=== PATIENT | male | born 1955 | race Two or more races ===

== ENCOUNTER 2019-06-18 23:53 | Emergency (ER) | payer SELFPAY ==
[~2019-06-18] VITALS: Ht 170.2 cm; Wt 102.0 kg
[~2019-06-18 23:53] MED LIST: CLON1TAB PO; ESCI20TA10 PO; LISI5TAB7 PO; METF10002 PO; TRAZ-137 PO
[2019-06-18 23:57] VITALS: BP 141/69
--- NOTE | 2019-06-19 00:04 | NUR ---
PT AMBULATES FROM TRIAGE TO ROOM WITH STEADY GAIT.
[2019-06-19] MEDS ORDERED: DEXAMETHASONE 4 MG TABLET PO ONE (00:30)
[2019-06-19] MEDS ORDERED: DEXAMETHASONE 4 MG TABLET ONE (00:32)
[2019-06-19 00:48] LABS: RAPID INFLUENZA A Negative (Negative); RAPID INFLUENZA B Negative (Negative)
--- NOTE | 2019-06-19 01:55 | NUR ---
PT D/C WITH D/C SUMMARY AND SCRIPTS. ALL QUESTIONS ANSWERED. PT AMBULATES TO REGISTRATION DESK WITH STEADY GAIT FOR D/C HOME. PT DENIES ANY OTHER NEEDS PERTAINING TO THIS VISIT.
== END 2019-06-19 01:58 | disposition home or self-care (01) ==
LOC: ED 06-19 00:25
DX: J06.9 Acute upper respiratory infection, unspecified (principal); F17.210 Nicotine dependence, cigarettes, uncomplicated; R06.00 Dyspnea, unspecified; E11.9 Type 2 diabetes mellitus without complications
CPT/HCPCS: 71046; 87081; 87400; 87880; 99284